=== PATIENT | female | born 1990 | race Native Hawaiian/Other Pacific Islander ===

== ENCOUNTER 2016-12-26 17:23 | Emergency (ER) | payer OTHER, BC ==
[2016-12-26 17:29] VITALS: BP 146/87; PULSE 118; RESP 18; TEMP 99.8; O2SAT 97
--- NOTE | 2016-12-26 18:18 | ED PDOC ---
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 Pt. is uncertain of her pt.'s PMHx. Denies pain, visual changes. Past Medical History Reviewed: Historical Data, Nursing Documentation, Vital Signs Vital Signs: Last Vital Signs Temp 99.8 F H 12/26/16 17:27 Pulse 118 H 12/26/16 17:27 Resp 18 12/26/16 17:27 BP 146/87 12/26/16 17:27 Pulse Ox 97 12/26/16 18:22 - Family History Family History: States: No Known Family Hx - Allergies Allergies/Adverse Reactions: Allergies Allergy/AdvReac Type Severity Reaction Status Date / Time No Known Allergies Allergy Verified 12/26/16 17:26 Review of Systems ROS Statement: Except As Marked, All Systems Reviewed And Found Negative Physical Exam - Physical Exam Appears: Positive for: Well, Non-toxic, No Acute Distress Head Exam: Positive for: ATRAUMATIC, NORMAL INSPECTION, NORMOCEPHALIC Skin: Positive for: Normal Color, Warm. Negative for: Rash Eye Exam: Positive for: Normal appearance - ECG O2 Sat by Pulse Oximetry: 97 - Progress ED Course And Treament: Labs ordered. Pt. was offered HIV prophylaxis but refused. Disposition - Clinical Impression Clinical Impression: Employee exposure to body fluids - Patient ED Disposition Is Patient to be Admitted: No - Disposition Disposition Time: 19:00 Condition: STABLE Instructions: Body Substance Exposure (ED)
== END 2016-12-26 19:52 | disposition home or self-care (01) ==
LOC: H.ER 17:23
DX: Z77.21 Contact with and (suspected) exposure to potentially hazardous body fluids (principal)